=== PATIENT | female | born 1960 | race American Indian/Alaskan Native ===

== ENCOUNTER 2016-12-06 10:01 | Outpatient (CLI) | payer OTHER ==
--- NOTE | 2016-12-06 12:17 | XRay Report ---
LUMBAR SPINE RADIOGRAPHS: INDICATION: Chronic back pain for more than 3 months. COMPARISON: None similar. FINDINGS: AP and lateral lumbar spine radiographs demonstrate mild lumbar levoscoliosis apex about L3 with an IVC filter also projecting about this level. Normal vertebral body stature. Slight degenerative spurring and mid to lower lumbar disc narrowing. Osteopenia not excluded. Clear visualized lung bases. Sternotomy wires. Nonobstructive bowel gas pattern. Intact SI joints. CONCLUSION: No acute lumbar radiographic abnormality with few degenerative and iatrogenic changes noted, as above. Thank you for the opportunity to participate in this patient's care.
== END 2016-12-06 10:02 | disposition home or self-care (01) ==
LOC: SPVWC 10:01
PROVIDERS: ATTEND Internal Medicine
DX: M47.896 Other spondylosis, lumbar region (principal); M41.86 Other forms of scoliosis, lumbar region; M85.88 Other specified disorders of bone density and structure, other site; Z98.890 Other specified postprocedural states
CPT/HCPCS: 72100

== ENCOUNTER 2017-05-18 11:18 | Outpatient (CLI) | payer OTHER ==
--- NOTE | 2017-05-21 11:23 | PET Report ---
PET/CT:05/18/17 11:18:00 CLINICAL: Breast cancer restaging. History of left breast cancer. RADIOPHARMACEUTICAL: 30.11mCi F18-FDG. COMPARISON: CT [facility] 07/24/09. No previous PET/CT TECHNIQUE- Following intravenous injection of F-18 FDG and an approximately 60 minute uptake period, CT and PET images from the mid skull to the upper thighs were acquired with the patient in the fasted state. No contrast was administered. The CT protocol used for this PET CT study is designed for attenuation correction and anatomic localization of PET abnormalities. This damper maker CT is not desired to produce and cannot replace, [id number]-hp-[id number]-art diagnostic CT scans with specific imaging protocols for different body parts and indications. Plasma glucose at the time of this test: 95g/dl. The standardized uptake values (SUV) are normalized to patient body weight and indicate the highest activity concentration (SUV max) in a given disease site. FINDINGS: Brain--Physiologic FDG uptake in the visualized regions of the brain. Neck--Physiologic FDG uptake . Chest--Physiologic FDG uptake in mediastinal blood pool and myocardium. Clips in the left upper inner breast and no abnormal FDG uptake in the breast or chest wall. Lungs--No abnormal uptake. No pulmonary nodule or mass. Pleura/pericardium--No abnormal uptake. Thoracic nodes--No abnormal uptake. Hepatobiliary--No abnormal uptake. Liver background SUV mean, as a reference for comparing FDG studies, is 2.6 . No liver mass. Spleen--No abnormal uptake. Pancreas--No abnormal uptake. Adrenal Glands--No abnormal uptake. Kidneys/Ureters/Bladder--No abnormal uptake. Abdominopelvic Nodes--No abnormal uptake. Bowel/Peritoneum/Mesentery--No abnormal uptake. Pelvic organs--No abnormal uptake. Bones/Soft Tissues--No abnormal uptake. No suspicious bone lesions. Status post right craniotomy. Status post median sternotomy. Other findings: IVC filter. IMPRESSION- Negative study with no evidence of disease recurrence or metastasis.
== END 2017-05-18 11:19 | disposition home or self-care (01) ==
LOC: PET 11:18
PROVIDERS: ATTEND Internal Medicine Hematology & Oncology
DX: C50.212 Malignant neoplasm of upper-inner quadrant of left female breast (principal); R97.8 Other abnormal tumor markers; Z79.01 Long term (current) use of anticoagulants; Z79.899 Other long term (current) drug therapy; Z98.890 Other specified postprocedural states
CPT/HCPCS: 78815; 82962; A9552

== ENCOUNTER 2018-08-31 13:30 | Outpatient (CLI) | payer OTHER ==
--- NOTE | 2018-08-31 17:57 | Vascular Lab Report ---
PROCEDURE: VL VENOUS DUPLEX LE RT TECHNIQUE: Grayscale, color flow and Doppler waveform imaging of the deep venous structures of the l ower extremities was performed. HISTORY: RIGHT CALF PAIN, FOR VENOUS THROMBEOMBOLISM COMPARISONS: None patient has an IVC filter and is on Xarelto. FINDINGS: There is demonstration of normal compression and normal phasic flow in the deep venous structures of the lower extremities bilaterally from the common femoral veins to the popliteal veins. There is demonstration of flow and compression in the right posterior tibial and peroneal veins. The left calf veins were not investigated. IMPRESSION: 1. No ultrasound evidence of acute deep venous thrombosis in the lower extremities bilaterally. This document is electronically signed by Gianna Huber MD., Aug 31 2018 05:55:31 PM ET
== END 2018-08-31 13:31 | disposition home or self-care (01) ==
LOC: VAS 13:30
PROVIDERS: ATTEND Internal Medicine
DX: M79.661 Pain in right lower leg (principal)